=== PATIENT | female | born 1955 | race Caucasian/White ===

== ENCOUNTER 2019-11-20 22:33 | Inpatient (IN) | payer OTHER ==
[~2019-11-20] VITALS: Ht 162.6 cm; Wt 64.4 kg
[2019-11-20] MEDS ORDERED: PEPCID AC20 MG (22:44)
[2019-11-20] MEDS ORDERED: LOSARTAN-HCTZ1 EAC2 (22:44)
[2019-11-20] MEDS ORDERED: PROTONIX40 MG (22:45)
[2019-11-20] MEDS ORDERED: DICY20TA (22:45)
[2019-11-25] MEDS ORDERED: PEPCID AC20 MG PO (12:56)
[2019-11-25] MEDS ORDERED: PROTONIX40 MG PO (12:57)
== END 2019-11-25 13:58 | disposition home or self-care (01) | DRG 446 ==
LOC: ER 22:33 → MEDI 11-21 13:11 → MEDJ 11-21 13:11 → MEDI 11-22 09:55
PROVIDERS: ADMIT Internal Medicine; ATTEND Internal Medicine
PROC: BW21ZZZ Computerized Tomography (CT Scan) of Abdomen and Pelvis (ICD-10-PCS; principal; 2019-11-21)
PROC: BW40ZZZ Ultrasonography of Abdomen (ICD-10-PCS; 2019-11-21)
PROC: 0FJB8ZZ Inspection of Hepatobiliary Duct, Via Natural or Artificial Opening Endoscopic (ICD-10-PCS; 2019-11-22)
PROC: 0FJD8ZZ Inspection of Pancreatic Duct, Via Natural or Artificial Opening Endoscopic (ICD-10-PCS; 2019-11-22)
PROC: BF14YZZ Fluoroscopy of Gallbladder, Bile Ducts and Pancreatic Ducts using Other Contrast (ICD-10-PCS; 2019-11-22)
PROC: 0DB68ZX Excision of Stomach, Via Natural or Artificial Opening Endoscopic, Diagnostic (ICD-10-PCS; 2019-11-24)
DX: K83.1 Obstruction of bile duct (principal); K29.30 Chronic superficial gastritis without bleeding